=== PATIENT | male | born 1965 | race African-American/Black ===

== ENCOUNTER 2018-08-10 09:21 | Inpatient (IN) | payer OTHER ==
[~2018-08-10] VITALS: Ht 170.2 cm; Wt 91.8 kg
[2018-08-10 09:33] VITALS: Ht 170.2 cm; Wt 91.8 kg
[2018-08-10 11:05] LABS: CALCIUM 8.8 mg/dL (8.5-10.1); CARBON DIOXIDE 26.7 mmol/L (21-32); CREATININE SERUM 1.6 mg/dL (0.7-1.3); POTASSIUM SERUM 5.2 mmol/L (3.5-5.1)
[2018-08-10 11:15] LABS: BILIRUBIN TOTAL 1.8 mg/dL (0.20-1.00); TOTAL PROTEIN, SERUM 7.4 g/dL (6.4-8.2)
[2018-08-10 11:18] LABS: ALBUMIN 3.3 g/dL (3.4-5.0)
[2018-08-10] MEDS ORDERED: RELION HUMUL100 U/M2 SQ (12:09)
[2018-08-10] MEDS ORDERED: LOTRIMIN AF1% TOP (12:10)
[2018-08-10] MEDS ORDERED: LANTUS SOLOS100 U/M1 SC (12:10)
[2018-08-10] MEDS ORDERED: METFORMIN HYD1000 M2 PO (12:11)
[2018-08-10] MEDS ORDERED: VENTOLIN H0.09 MG/A1 IH (12:12)
[2018-08-10] MEDS ORDERED: ASMANEX HF100 MCG/Ac IH (12:13)
[2018-08-10] MEDS ORDERED: ACT15 PO (12:13)
[2018-08-10] MEDS ORDERED: ATORVASTATIN CA80 M1 PO (12:14)
[2018-08-10] MEDS ORDERED: ZESTRIL20 MG PO (12:15)
[2018-08-10] MEDS ORDERED: LAXATIVE5 MG PO (12:15)
[2018-08-10] MEDS ORDERED: CLOPIDOGREL75 M1 PO (12:15)
[2018-08-10] MEDS ORDERED: XOPENEX HF0.045 MG/1 IH (12:16)
[2018-08-10 13:17] LABS: MAGNESIUM 2.1 mg/dL (1.8-2.4)
[2018-08-10 13:18] LABS: CHOLESTEROL/HDL RATIO 7.9
[2018-08-10 13:49] VITALS: BP 116/80
[2018-08-10 14:23] LABS: BASOPHIL % 0.7 % (0-2); PLATELET COUNT 286 x10^3mcL (130-400); RED CELL DISTRIBUTION WIDTH 12.5 % (11.5-14.5)
[2018-08-10 15:45] VITALS: BP 128/87
[2018-08-10 20:40] VITALS: BP 102/72
[2018-08-11 04:44] LABS: microscopic required? NO
[2018-08-11 04:53] LABS: urine erythrocyte NEGATIVE (NEGATIVE)
[2018-08-11 05:07] LABS: AMPHETAMINE QUAL UR NONE DETECTED (See below)
[2018-08-11 05:35] VITALS: BP 131/82
[2018-08-11 06:22] LABS: BASOPHIL % 0.2 % (0-2); PLATELET COUNT 278 x10^3mcL (130-400); RED CELL DISTRIBUTION WIDTH 13.1 % (11.5-14.5)
[2018-08-11 06:34] LABS: CARBON DIOXIDE 28.6 mmol/L (21-32); CREATININE SERUM 1.5 mg/dL (0.7-1.3); POTASSIUM SERUM 4.1 mmol/L (3.5-5.1)
[2018-08-11 10:18] VITALS: BP 90/46
[2018-08-11 16:14] VITALS: BP 153/89
[2018-08-11 21:18] VITALS: BP 160/87
[2018-08-12 06:39] VITALS: BP 156/93
[2018-08-12 09:19] VITALS: BP 162/89
[2018-08-12 11:00] VITALS: BP 162/89
[2018-08-12 12:49] VITALS: BP 149/95
== END 2018-08-12 14:14 | disposition other institution (70) | DRG 313 ==
LOC: ED 09:21 → DU 11:52
PROVIDERS: Emergency Medicine; Internal Medicine
DX: R07.89 Other chest pain (principal); J45.901 Unspecified asthma with (acute) exacerbation; N17.9 Acute kidney failure, unspecified; I25.10 Atherosclerotic heart disease of native coronary artery without angina pectoris; I25.2 Old myocardial infarction; J44.9 Chronic obstructive pulmonary disease, unspecified; N18.9 Chronic kidney disease, unspecified; I12.9 Hypertensive chronic kidney disease with stage 1 through stage 4 chronic kidney disease, or unspecified chronic kidney disease; E11.22 Type 2 diabetes mellitus with diabetic chronic kidney disease; Z60.2 Problems related to living alone; J45.20 Mild intermittent asthma, uncomplicated; Z79.4 Long term (current) use of insulin; Z91.19 Patient's noncompliance with other medical treatment and regimen; Z68.32 Body mass index [BMI] 32.0-32.9, adult; Z95.5 Presence of coronary angioplasty implant and graft; Z79.84 Long term (current) use of oral hypoglycemic drugs; Z79.82 Long term (current) use of aspirin; Z79.899 Other long term (current) drug therapy
CPT/HCPCS: 82962; 83880; A9500; J2785; J2920; J3490; J3535; J7626; Q0092